=== PATIENT | male | born 2005 | race African-American/Black ===

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

== ENCOUNTER 2024-11-27 14:15 | Emergency (ER) | payer OTHER, SELFPAY | END 2024-11-27 14:54 | disposition home or self-care (01) | LOC: ERS 14:15 | DX: L03.211 Cellulitis of face (principal) | CPT/HCPCS: 99283 ==